=== PATIENT | female | born 1965 | race Hispanic/Latino ===

== ENCOUNTER 2017-10-03 07:51 | Emergency (ER) | payer MEDICAID ==
[2017-10-03 07:52] VITALS: BMI 48.0
--- NOTE | 2017-10-03 08:04 | ED PDOC ---
Arrival/HPI - General Chief Complaint: Medical Clearance Time Seen by Provider: 10/03/17 08:03 Historian: Patient - History of Present Illness Narrative History of Present Illness (Text): 10/03/17 08:15 52 year old female, whose PMH includes diabetes, who presents to the emergency department via EMT and accompanied by her complaining of behavioral changes since September 27 being the first episode that lasted 5 minutes. Patient went back to baseline but 2 days ago resumed with the behavioral changes and appears to be permanent. Per , patient's behavior is immature speech as if she is a toddler and has uncontrollable tremors to hands and fingers. Patient was brought in to Dr. Ponce's office one day ago, who prescribed CT of the head, EEGs, but due to worsening behavior, spouse decided to call EMT this morning. Additionally, notes patient fell on September 25, 2017, landing on her right side and patient is complaining of occasional shortness of breath on exertion with reproducible right sided chest pain. Patient denies fever, chills , left sided chest pain, abdominal pain, incontinent, or other complaints. Patient is left handed dominant and lives with spouse. PMD: Dr. Ponce pt is left hand dominate pt lives with spouse at home Time/Duration: < week Symptom Onset: Sudden Symptom Course: Worsening Activities at Onset: Rest Context: Home Past Medical History - Provider Review Nursing Documentation Reviewed: Yes - Travel History Have you recently traveled outside [place] w/in the past 3 mons?: No - Past History Past History: No Previous - Infectious Disease Hx of Infectious Diseases: None - Tetanus Immunization Tetanus Immunization: Unknown - Reproductive Menopause: Yes Currently : No - Past Medical History Past Medical History: No Previous - Cardiac Hx Pacemaker: No - Pulmonary Hx Respiratory Disorders: No - Neurological Hx Paralysis: No - HEENT Hx HEENT Disorder: No - Renal Hx Renal Disorder: No - Endocrine/Metabolic Hx Endocrine Disorders: Yes Hx Diabetes Mellitus Type 2: Yes - Hematological/Oncological Hx Blood Transfusions: No - Integumentary Hx Dermatological Disorder: No - Musculoskeletal/Rheumatological Hx Musculoskeletal Disorders: Yes (NEUROPATHY) - Gastrointestinal Hx Gastrointestinal Disorders: No - Genitourinary/Gynecological Hx Genitourinary Disorders: No - Psychiatric Hx Emotional Abuse: No Hx Physical Abuse: No Hx Substance Use: No - Surgical History Hx Cholecystectomy: Yes - Anesthesia Hx Anesthesia Reactions: No Hx Malignant Hyperthermia: No - Suicidal Assessment Feels Threatened In Home Enviroment: No Family/Social History - Physician Review Nursing Documentation Reviewed: Yes Family/Social History: Unknown Family HX Smoking Status: Never Smoked Hx Alcohol Use: No Hx Substance Use: No Allergies/Home Meds Allergies/Adverse Reactions: Allergies No Known Allergies Allergy (Verified 10/30/15 13:09) Home Medications: Home Meds Medication Instructions Recorded Confirmed Gabapentin [Neurontin] 300 mg PO TID 10/30/15 01/13/16 Atorvastatin [Lipitor] 20 mg PO DIN 11/03/15 01/13/16 metFORMIN [glucOPHAGE] 850 mg PO BID 11/03/15 01/13/16 Multivitamin [Multivitamins] 1 cap PO DAILY 11/16/15 01/13/16 Calcium Carbonate [Calcium] 600 mg PO BID 01/11/16 01/13/16 Ergocalciferol (Vitamin D2) 2,000 iu PO DAILY 01/11/16 01/13/16 [Vitamin D2] Famotidine [Pepcid] 40 mg PO DAILY 01/11/16 01/13/16 [place]-3 Fatty Acids [Fish Oil] 500 mg PO BID 01/11/16 01/13/16 Review of Systems - Review of Systems Constitutional: absent: Fevers Eyes: absent: Vision Changes ENT: absent: Sore Throat Respiratory: SOB Cardiovascular: absent: Chest Pain Gastrointestinal: absent: Abdominal Pain, Vomiting Genitourinary Female: absent: Dysuria Musculoskeletal: absent: Back Pain Skin: absent: Rash Neurological: Speech Changes, Other (uncontrollable tremors on hands and fingers ). absent: Dizziness Endocrine: absent: Diaphoresis Hemo/Lymphatic: Normal Psychiatric: Other (behavioral changes ) Physical Exam Vital Signs Reviewed: Yes Vital Signs Temp Pulse Resp BP Pulse Ox 10/03/17 08:05 98.8 F 71 18 140/91 H 98 Temperature: Afebrile Blood Pressure: Hypertensive (mild) Pulse: Regular Respiratory Rate: Normal Appearance: Positive for: Well-Appearing, Non-Toxic, Comfortable, Other (alert/ awake, GCS = 15, oriented x 2 (not to date/time), NAD, cooperative, resting in bed, follows command with ease) Pain Distress: None Mental Status: Positive for: other (alert/awake, follows command with ease). No : Alert and Oriented X 3 (oriented x 2 (not to date) ), Confused, Agitated, Lethargic, Comatose - Systems Exam Head: Present: Atraumatic, Normocephalic Pupils: Present: PERRL, Other (no nystagmus, no photophobia, sclera anicteric, visual field intact b/l) Extroacular Muscles: Present: EOMI Conjunctiva: Present: Normal Ears: Present: Normal Mouth: Present: Moist Mucous Membranes, Other (fair dentitions, no drooling/ stridor, no exudate/lesions, no dysphonia) Pharnyx: Present: Normal Nose (External): Present: Atraumatic Nose (Internal): Present: Normal Inspection Neck: Present: Normal Range of Motion, Trachea Midline, Other (no midline tenderness, no step off). No: Meningeal Signs, MIDLINE TENDERNESS Respiratory/Chest: Present: Clear to Auscultation, Good Air Exchange, Other ( CTA b/l, no w/r/r, no accessory muscle use noted, no tachypenia). No: Respiratory Distress, Accessory Muscle Use, Wheezes, Rales, Rhonchi Cardiovascular: Present: Regular Rate and Rhythm, Normal S1, S2. No: Murmurs Abdomen: Present: Normal Bowel Sounds, Other (obese/well nourished female, no focal tenderness, no masses/rebound/guarding/rigidity, no madden's sign, no mcburney's point tenderness). No: Tenderness, Distention, Peritoneal Signs, Rebound, Guarding Back: Present: Normal Inspection. No: CVA Tenderness, Midline Tenderness Upper Extremity: Present: Normal Inspection, Normal ROM, NORMAL PULSES, Neurovascularly Intact. No: Deformity Lower Extremity: Present: Normal Inspection, NORMAL PULSES, Normal ROM, Neurovascularly Intact. No: Deformity Neurological: Present: GCS=15, CN II-XII Intact, Speech Normal Skin: Present: Warm, Dry, Normal Color, Other (cap refill < 1sec, no ulcerations , no petechiae). No: Rashes Psychiatric: Present: Alert, Normal Insight, Normal Concentration. No: Oriented x 3 (Oriented x 2 not to date) Medical Decision Making ED Course and Treatment: 10/03/17 Impression: 52 year old female with is alert and oriented x 2 (not to date) and NIH is 0 complaining of behavior changes per spouse. I have considered all Differential Diagnosis regarding pt's chief medical complaints/clinical findings included but are not limited to: AMS r/o intracranial pathologies Plan: -- CT head -- EKG -- Chest X-ray -- Labs -- Reassess and disposition Progress Notes: 10/03/17 10:[address] Jen Ponce, made aware of ED presentation/dx/mgt; Dr ponce would like to evaluate patient in his office this afternoon ~ 4pm; pt can be discharged home i spoke to patient and both patient and the became very frustrated and angry stating they would like to see Dr ponce here and does not want to leave the hospital until they are told why pt is acting the way she is PES/crisis counselor contacted, will see patient i will reach out to Dr Ponce again pt is currently awaiting UA pt without any medical complaints currently no chest pain, no sob 1230 PES/crisis counselor evaluated patient, pt is stable and can be referred to outpt PCP/neurology/mental facility for further outpt eval/mgt 10/03/17 12:41 pt is doing well pt is not in any distress pt is comfortable vital signs are stable Dr Ponce is made aware of pt's medical results, would like pt to be discharged home with continued outpt f/u pt/family are made aware of pt's medical results pt will f/u as directed pt will be discharged home Re-evaluation Time: 10:05 Reassessment Condition: Unchanged - Lab Interpretations Lab Results: 10/03/17 08:50 10/03/17 08:50 Lab Results 10/03/17 10:38: Urine Opiates Screen Negative, Urine Methadone Screen Negative, Ur Barbiturates Screen Negative, Ur Phencyclidine Scrn Negative, Ur Amphetamines Screen Negative, U Benzodiazepines Scrn Negative, U Oth Cocaine Metabols Negative, U Cannabinoids Screen Negative 10/03/17 10:33: Urine Color Light yellow, Urine Appearance Clear, Urine pH 7.5, Ur Specific [place] 1.010, Urine Protein Negative, Urine Glucose (UA) Negative, Urine Ketones Negative, Urine Blood Trace-lysed H, Urine Nitrate Negative, Urine Bilirubin Negative, Urine Urobilinogen 0.2, Ur Leukocyte Esterase Negative , Urine RBC 2 - 5, Urine WBC 0 - 2, Ur Epithelial Cells 3 - 4, Urine Bacteria Few 10/03/17 08:50: Salicylates < 1 L, Acetaminophen < 10.0 L 10/03/17 08:50: Ammonia < 9 L 10/03/17 08:50: pO2 38, VBG pH 7.33, VBG pCO2 59.0, VBG HCO3 31.1 H, VBG Total CO2 32.9 H, VBG O2 Sat (Calc) 78.2 H, VBG Base Excess 3.6 H, VBG Potassium 3.9, Sodium 140.0, Chloride 106.0, Glucose 75, Lactate 1.0, FiO2 21.0, Venous Blood Potassium 3.9 10/03/17 08:50: Serum Osmolality 294, TSH 3rd Generation 1.43, Alcohol, Quantitative < 10 10/03/17 08:50: Sodium 146, Chloride 105, Potassium 4.3, Carbon Dioxide 32, Anion Gap 13, BUN 16, Creatinine 0.9, Est GFR ( Amer) > 60, Est GFR (Non- Af Amer) > 60, Random Glucose 74, Calcium 9.5, Total Bilirubin 0.6, AST 27, ALT 30, Alkaline Phosphatase 78, Troponin I < 0.01, Total Protein 7.2, Albumin 4.1, Globulin 3.0, Albumin/Globulin Ratio 1.4, Lipase 309 H 10/03/17 08:50: PT 11.3, INR 0.98, APTT 27.7 10/03/17 08:50: WBC 5.3 D, RBC 4.29, Hgb 13.8, Hct 41.4, MCV 96.5, MCH 32.2, MCHC 33.3, RDW 12.3, Plt Count 179, MPV 9.7, Gran % 42.2 L, Lymph % (Auto) 48.4 H, [place] % (Auto) 5.6, Eos % (Auto) 3.4, Baso % (Auto) 0.4, Gran # 2.24, Lymph # (Auto) 2.6, [place] # (Auto) 0.3, Eos # (Auto) 0.2, Baso # (Auto) 0.02 I have reviewed the lab results: Yes Interpretation: All labs normal - RAD Interpretation Narrative RAD Interpretations (Text): 10/03/17 09:40 CT Head: Creator : Albino Anthony MD COMPARISON: Unenhanced head CT 10/30/2015. FINDINGS: HEMORRHAGE: No intracranial hemorrhage. BRAIN: Normal grimes-white matter differentiation and density are appreciated throughout the cerebrum and cerebellum with the brainstem appearing unremarkable as well. There is no mass effect. There is no suspicious extra- axial fluid collection and the midline brain anatomy appears diffusely unremarkable. VENTRICLES: Unremarkable. No hydrocephalus. CALVARIUM: Unremarkable. PARANASAL SINUSES: Unremarkable as visualized. No significant inflammatory changes. MASTOID AIR CELLS: Unremarkable as visualized. No inflammatory changes. OTHER FINDINGS: None. IMPRESSION: Stable unremarkable unenhanced head CT. MRI or CT are available follow-up if clinically warranted. 10/03/17 12:46 CXR - NAD Radiology Orders: 10/03/17 08:35 HEAD W/O CONTRAST [CT] Stat 10/03/17 10:11 CHEST TWO VIEWS (PA/LAT) [RAD] Stat Operations Logistics Analyst: ED Physician, Radiologist - EKG Interpretation EKG Interpretation (Text): 10/03/17 10:11 NSR at 65 bpm, LAD, no ectopy, diffuse low voltage, inverted T in leads III, non -specific st changes, ABNL EKG; unchanged compare with old ekg 10/2015 Interpreted by ED Physician: Yes Type: 12 lead EKG Comparison: Similar to previous EKG - Medication Orders Current Medication Orders: Sodium Chloride (Sodium Chloride 0.9%) 1,000 mls @ 100 mls/hr IV .Q10H NICOLA Last Admin: 10/03/17 09:00 Dose: 100 mls/hr eMAR Start Stop Document 10/03/17 09:00 THEE (Rec: 10/03/17 09:00 THEE [id number]) Intravenous Solution Start Date 10/03/17 Start Time 09:00 Discontinued Medications Aspirin (Aspirin) 325 mg PO STAT STA Stop: 10/03/17 08:38 Last Admin: 10/03/17 09:00 Dose: 325 mg NIHSS Stroke Scale 3 - Date/Time Evaluation Performed Date Performed: 10/03/17 Time Performed: 08:15 When Was NIHSS Performed: Baseline - How Severe is the Stroke Level of Consciousness: 0=Alert LOC to Questions: 0=Both comments correct LOC to commands: 0=Obeys both correctly Best Gaze: 0=Normal Visual: 0=No visual loss Facial: 0=Normal Motor Arm - Left: 0=No drift Motor Arm - Right: 0=No drift Motor Leg - Left: 0=No drift Motor Leg - Right: 0=No drift Limb Ataxia: 0=Absent Sensory: 0=Normal Best Language: 0=No aphasia Extinction & Inattention (Neglect): 0=Normal, no object - Scribe Statement The provider has reviewed the documentation as recorded by the Scribe Maria R Charlie Provider Scribe Attestation: All medical record entries made by the Scribe were at my direction and personally dictated by me. I have reviewed the chart and agree that the record accurately reflects my personal performance of the history, physical exam, medical decision making, and the department course for this patient. I have also personally directed, reviewed, and agree with the discharge instructions and disposition. Disposition/Present on Arrival - Present on Arrival Any Indicators Present on Arrival: No History of DVT/PE: No History of Uncontrolled Diabetes: No Urinary Catheter: No History of Decub. Ulcer: No History Surgical Site Infection Following: None - Disposition Have Diagnosis and Disposition been Completed?: Yes Diagnosis: Behavior concern in adult, Behavior related to cognitive impairment, General medical examination Disposition: HOME/ ROUTINE Disposition Time: 12:43 Patient Plan: Discharge Patient Problems: Current Active Problems Problem Status Onset Behavior concern in adult Acute Behavior related to cognitive impairment Acute General medical examination Acute Condition: STABLE Discharge Instructions (ExitCare): Evaluating Memory and Thinking Problems, Yearly Physical for Adults Print Language: SERBIAN Additional Instructions: Make sure to see your doctor in 1-2 days Make sure to See Dr Ponce as directed DRINK PLENTY OF FLUIDS take your medications as prescribed RETURN TO ED IF worse pain, cant breath, persistent vomiting, high fever >101- 102 for hours, altered behavior, slurr speech, facial changes, focal weakness ( arm/leg or both), unable to urinate, heavy/persistent bleeding, passing out, chest pain, or other medical emergencies Referrals: Jonathan Ponce DO [Primary Care Provider] - Follow up with primary Javier Zabala MD [Staff Provider] - Follow up with primary Forms: Corpora (Tunisian)
[2017-10-03 08:11] VITALS: RESP 18
[2017-10-03] MEDS ORDERED: Sodium Chloride 0.9% 1,000 ML IV SCH (08:45)
[2017-10-03 09:09] LABS: VENOUS BLOOD GAS BASE EXCESS 3.6 mmol/L (0.0-2.0); VENOUS BLOOD GAS PO2 38 mm/Hg (30-55); VENOUS BLOOD PH 7.33 (7.32-7.43)
[2017-10-03 09:11] LABS: BASO # 0.02 K/mm3 (0.0-2.0); BASO % 0.4 % (0.0-3.0); EOS # 0.2 (0.0-0.7); EOS % 3.4 % (1.5-5.0); GRAN # 2.24 (1.4-6.5); GRAN % 42.2 % (50.0-68.0); HEMOGLOBIN 13.8 g/dL (12.0-16.0); LYMPH # 2.6 (1.2-3.4); LYMPH % 48.4 % (22.0-35.0); MEAN CELL VOLUME 96.5 fl (80.0-105.0); MEAN CORPUSCULAR HEMOGLOBIN 32.2 pg (25.0-35.0); MEAN CORPUSCULAR HGB CONC 33.3 g/dl (31.0-37.0); MEAN PLATELET VOLUME 9.7 fl (7.0-11.0); MONO # 0.3 (0.1-0.6); MONO % 5.6 % (1.0-6.0); RBC 4.29 10^6/uL (3.5-6.1); RED CELL DISTRIBUTION WIDTH 12.3 % (11.5-14.5); WHITE BLOOD COUNT 5.3 10^3/ul (4.5-11.0)
[2017-10-03 09:23] LABS: ALB/GLOB RATIO 1.4 (1.1-1.8); ALBUMIN 4.1 g/dL (3.0-4.8); ALT/SGPT 30 U/L (7-56); AST/SGOT 27 U/L (14-36); BLOOD UREA NITROGEN 16 mg/dL (7-21); CALCIUM 9.5 mg/dL (8.4-10.5); GFR AFRICAN-AMERICAN > 60; GFR NON-AFRICAN AMERICAN > 60; LIPASE 309 U/L (23-300)
[2017-10-03 09:24] LABS: ACETAMINOPHEN < 10.0 ug/ml (10.0-20.0); SALICYLATE < 1 mg/dL (2.0-20.0)
[2017-10-03 09:28] LABS: OSMOLALITY,SERUM 294 mosm/kg (272-300)
[2017-10-03 09:31] LABS: INR 0.98 (0.93-1.08); PARTIAL THROMBOPLASTIN TIME 27.7 Seconds (25.1-36.5); PROTHROMBIN TIME 11.3 SECONDS (9.4-12.5)
[2017-10-03 09:34] LABS: TROPONIN I < 0.01 ng/mL
--- NOTE | 2017-10-03 09:39 | CT ---
PROCEDURE: CT HEAD WITHOUT CONTRAST. HISTORY: AMS COMPARISON: Unenhanced head CT 10/30/2015. TECHNIQUE: Axial computed tomography images were obtained through the head/brain without intravenous contrast. Radiation dose: Total exam DLP = 956.31 mGy-cm. This CT exam was performed using one or more of the following dose reduction techniques: Automated exposure control, adjustment of the mA and/or kV according to patient size, and/or use of iterative reconstruction technique. FINDINGS: HEMORRHAGE: No intracranial hemorrhage. BRAIN: Normal grimes-white matter differentiation and density are appreciated throughout the cerebrum and cerebellum with the brainstem appearing unremarkable as well. There is no mass effect. There is no suspicious extra-axial fluid collection and the midline brain anatomy appears diffusely unremarkable. VENTRICLES: Unremarkable. No hydrocephalus. CALVARIUM: Unremarkable. PARANASAL SINUSES: Unremarkable as visualized. No significant inflammatory changes. MASTOID AIR CELLS: Unremarkable as visualized. No inflammatory changes. OTHER FINDINGS: None. IMPRESSION: Stable unremarkable unenhanced head CT. MRI or CT are available follow-up if clinically warranted.
[2017-10-03 11:24] LABS: BARBITURATES, UR NEGATIVE (NEGATIVE); BENZODIAZEPINES, UR NEGATIVE (NEGATIVE); OPIATES, UR NEGATIVE (NEGATIVE); PHENCYCLIDINE, UR NEGATIVE (NEGATIVE)
[2017-10-03 12:26] LABS: PH,URINE 7.5 (4.7-8.0); URINE BILIRUBIN NEGATIVE (NEGATIVE); URINE BLOOD TRACE-LYSED (NEGATIVE); URINE GLUCOSE (UA) NEGATIVE (NEGATIVE); URINE LEUKOCYTE ESTERASE NEGATIVE Leu/uL (NEGATIVE); URINE PROTEIN NEGATIVE mg/dL (<30 mg/dL); URINE UROBILINOGEN 0.2 E.U./dL (<1 E.U./dL)
[2017-10-03 12:27] LABS: URINE APPEARANCE CLEAR (CLEAR); URINE COLOR LIGHT YELLOW (YELLOW)
[2017-10-03 12:33] LABS: URINE WBC 0 - 2 /hpf (0-6)
[2017-10-03 12:34] LABS: URINE BACTERIA FEW (NEG)
--- NOTE | 2017-10-03 13:13 | RAD ---
HISTORY: COMPARISON: 10/30/2015. TECHNIQUE: Chest PA and lateral FINDINGS: LINES AND TUBES: None. LUNG AND PLEURA: The lungs are well inflated and clear. HEART AND MEDIASTINUM: The heart is not enlarged. The hilar and mediastinal contours are within normal limits. SKELETAL STRUCTURES: The bony structures are within normal limits for the patient's age. VISUALIZED UPPER ABDOMEN: Normal. OTHER FINDINGS: None. IMPRESSION: No active pulmonary disease.
[2017-10-03 13:36] VITALS: BP 118/77; PULSE 77; TEMP 98; O2SAT 99
--- NOTE | 2017-10-03 14:22 | CARD ---
APPROVED REPORT EKG Measurement Heart [id number] <Conclusion> Normal sinus rhythm Left axis deviation Low voltage QRS Nonspecific ST abnormality Abnormal ECG
[2017-10-07 16:46] LABS: BETA-HYDROXYBUTYRIC ACID None Detected
== END 2017-10-03 13:38 | disposition home or self-care (01) ==
LOC: ED 07:51
DX: Z04.8 Encounter for examination and observation for other specified reasons (principal); G31.84 Mild cognitive impairment of uncertain or unknown etiology; E11.9 Type 2 diabetes mellitus without complications; Z90.49 Acquired absence of other specified parts of digestive tract
CPT/HCPCS: 70450; 71046; 80053; 80320; 80324; 80329; 80345; 80346; 80349; 80353; 80358; 80361; 81001; 82010; 82140; 82803; 83690; 83930; 83992; 84443; 84484; 85025; 85610; 85730; 93005; 96360; 96361; 99285; J7040

== ENCOUNTER 2018-10-23 09:45 | Outpatient (CLI) | payer MEDICAID | END 2018-10-23 09:46 | disposition home or self-care (01) | LOC: RAD 09:45 | DX: Z12.31 Encounter for screening mammogram for malignant neoplasm of breast (principal) ==

== ENCOUNTER 2018-10-30 07:24 | Outpatient (CLI) | payer MEDICAID | END 2018-10-30 07:25 | disposition home or self-care (01) | LOC: CARDIO 07:24 | DX: R07.9 Chest pain, unspecified (principal); R06.09 Other forms of dyspnea ==